=== PATIENT | male | born 1965 | race Caucasian/White ===

== ENCOUNTER 2019-10-16 23:07 | Emergency (ER) | payer BC ==
[2019-10-16] MEDS ORDERED: AZITHROMYCIN 250 MG TABLET PO ONE (23:26)
[2019-10-16] MEDS ORDERED: ALBUTEROL SULFATE HFA (90 MCG/PUFF) 8 GM MDI (1 MDI/ER DISP) IH ONE (23:27)
[2019-10-16] MEDS ORDERED: PREDNISONE 20 MG TABLET PO ONE (23:27)
--- NOTE | 2019-10-16 23:41 | ER Document Report ---
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 Her symptoms in 2014. Reflux since a youth 16 years old. TRAVEL OUTSIDE OF THE [place] IN LAST 30 DAYS: No - HPI Onset: Yesterday Onset/Duration: Persistent Quality of pain: Achy Severity: Mild Pain Level: 1 Associated Symptoms: Cough (productive) - Related Data Allergies/Adverse Reactions: No Known Allergies Allergy (Unverified 10/17/19 00:45) Review of Systems - Review of Systems Constitutional: See HPI, Fever, Malaise, Weakness, Recent illness EENT: See HPI, Nose congestion Cardiovascular: See HPI, Heart racing Respiratory: Cough, Short of breath Gastrointestinal: No symptoms reported Genitourinary: No symptoms reported Male Genitourinary: No symptoms reported Musculoskeletal: No symptoms reported Skin: No symptoms reported Hematologic/Lymphatic: No symptoms reported Neurological/Psychological: No symptoms reported Physical Exam - Vital signs Vitals: Temp Pulse Resp BP Pulse Ox 98.4 F 120 H 19 153/99 H 94 10/16/19 23:44 10/16/19 23:44 10/16/19 23:44 10/16/19 23:44 10/16/19 23:44 Interpretation: Tachycardic - HEENT Head: Normocephalic, Atraumatic Eyes: Normal Pupils: PERRL Nasal: Other - nasal congestion Mouth/Lips: Normal Mucous membranes: Normal Pharynx: Normal Neck: Normal Course - Vital Signs Vital signs: Temp Pulse Resp BP Pulse Ox 98.4 F 120 H 19 153/99 H 94 10/16/19 23:44 10/16/19 23:44 10/16/19 23:44 10/16/19 23:44 10/16/19 23:44 - Diagnostic Test Radiology reviewed: Reports reviewed Doctor's Discharge - Discharge Clinical Impression: Pneumonia Qualifiers: Pneumonia type: due to unspecified organism Laterality: right Lung location: lower lobe of lung Qualified Code(s): J18.9 - Pneumonia, unspecified organism URI (upper respiratory infection) Qualifiers: URI type: unspecified URI Qualified Code(s): J06.9 - Acute upper respiratory infection, unspecified Condition: Good Disposition: HOME, SELF-CARE Instructions: Upper Respiratory Illness ([facility]) Additional Instructions: Follow-up with personal doctor this week return to ER as needed encourage fluids take medicines as directed; may apply nasal bactroban nasally HS x 5 days Prescriptions: Mupirocin [Bactroban 2% Ointment 22 gm] 1 applic NASL HSP PRN 5 Days #1 tube PRN Reason: Prednisone [Deltasone 20 mg Tablet] 3 tab PO DAILY 5 Days #15 tablet Azithromycin [Zithromax 250 mg Tablet] 250 mg PO ASDIR PRN #6 tablet PRN Reason: Forms: Return to Work
[2019-10-16] MEDS ORDERED: CEFTRIAXONE INJ 1000 MG VIAL IM ONE (23:44)
[2019-10-16] MEDS ORDERED: DEXAMETHASONE SOD PHOS INJ 10 MG/1 ML VIAL IM ONE (23:45)
[2019-10-16 23:46] VITALS: BP 153/99
[2019-10-16] MEDS ORDERED: LIDOCAINE 1% INJ (10 MG/ML) 10 ML MDV INJ ONE (23:55)
--- NOTE | 2019-10-17 00:05 | RADIOLOGY REPORT (SQ) ---
AP Portable chest: 10/16/2019 11:03 PM CDT History: 54-year old patient with dyspnea. Comparison: None available Findings: The cardiomediastinal silhouette is normal in size. No pneumothorax is seen. No acute airspace opacities are seen. No discrete pleural effusion is apparent. Impression: No acute airspace opacities are seen.
[2019-10-17] MEDS ORDERED: ALBUTEROL SULFATE HFA (90 MCG/PUFF) 8 GM MDI IH ONE (00:10)
== END 2019-10-17 03:55 | disposition home or self-care (01) ==
LOC: ER 23:07
DX: J18.9 Pneumonia, unspecified organism (principal); J06.9 Acute upper respiratory infection, unspecified; R53.81 Other malaise; R09.81 Nasal congestion; R05 Cough; R50.9 Fever, unspecified; R06.02 Shortness of breath; R53.1 Weakness
CPT/HCPCS: 99284; 96372; 71045; J0696; J1100; J3490

== ENCOUNTER → 2020-02-07 | Outpatient (CLI) | payer BC ==
[~2020-02-07] MED LIST: COVID-19 VACCINE (PFIZER)/PF 30 MCG/0.3 ML VIAL IM ONE; EPINEPHRINE INJ/PF 1 MG/1 ML AMPULE IM PRN
== END ==
LOC: EMPHEALTH 07:48
PROVIDERS: ATTEND Internal Medicine
DX: Z23 Encounter for immunization (principal)
CPT/HCPCS: 91300

== ENCOUNTER → 2020-02-28 | Outpatient (CLI) | payer BC | LOC: EMPHEALTH 07:45 | PROVIDERS: ATTEND Internal Medicine | DX: Z23 Encounter for immunization (principal) | CPT/HCPCS: 91300 ==